=== PATIENT | male | born 1955 | race Caucasian/White ===

== ENCOUNTER 2017-09-15 12:26 | Emergency (ER) | payer OTHER ==
[~2017-09-15] VITALS: Ht 182.9 cm; Wt 92.3 kg
[~2017-09-15 12:26] MED LIST: ADULT LOW DOSE81 M1 PO; ADVAIR HFA120 INHALA IH; AUGMENTIN875 MG PO; Cozaar PO; DELTASONE20 M1 PO; GUAIFENESIN WI120 ML PO; LISINOPRIL10 MG PO; Lopressor PO; Norvasc PO; PREDNISONE10 MG PO; Plavix PO; Protonix PO; SPIRIVA RESPIMAT4 GM IH; TOPROL XL25 MG PO; TOPROL XL50 MG PO
[2017-09-15 13:08] LABS: BASOPHIL (%) 0.4 % (0-1); BASOPHIL COUNT 0.1 K/uL (0-0.1); EOSINOPHIL (%) 0 % (0-5); HEMATOCRIT 37.9 % (38.0-50.0); HEMOGLOBIN 13.4 G/DL (12.5-16.6); IMMATURE GRANULOCYTE (%) 3.7 % (0.0-0.7); LYMPHOCYTE (%) 5.7 % (15-42); LYMPHOCYTE COUNT 0.6 K/uL (1.0-2.8); MCH 32.7 PG (29.0-34.0); MCHC 35.4 G/DL (30.0-36.0); MCV 92.4 FL (86-99); MONOCYTE COUNT 0.5 K/uL (0-0.8); NEUTROPHIL (%) 86.2 % (45-76); NEUTROPHIL COUNT 9.7 K/uL (1.8-6.4); PLATELET COUNT 80 K/uL (156-360); RBC DIS.WIDTH-CV 14.7 % (11.8-14.6); WHITE BLOOD COUNT 11.2 K/uL (4.1-10.2)
[2017-09-15 13:16] LABS: ALBUMIN 3.9 g/dL (3.2-4.8); CHLORIDE 98 mEq/L (99-109); POTASSIUM 3.2 mEq/L (3.7-5.4); SODIUM 136 mEq/L (136-147)
[2017-09-15 13:19] LABS: GLUCOSE 209 mg/dL (70-99); TOTAL PROTEIN 7.4 g/dL (6.4-8.3)
[2017-09-15 13:22] LABS: ALKALINE PHOSPHATASE 130 IU/L (3-129); SERUM ETHYL ALCOHOL < 10 mg/dL
[2017-09-15 13:23] LABS: CREATININE 0.9 mg/dL (0.6-1.3); GFR ESTIMATE (CALCULATED) > 59 mL/min/ (58.99-99999)
[2017-09-15 13:24] LABS: AST (GOT) 96 IU/L (2-34); DIRECT BILIRUBIN 0.6 mg/dL (0.0-0.3); UREA NITROGEN (BUN) 4 mg/dL (9-23)
[2017-09-15 13:25] LABS: ALT (GPT) 75 IU/L (3-49)
[2017-09-15 14:47] VITALS: BP 147/93
== END 2017-09-15 14:49 | disposition left against medical advice (07) ==
LOC: EME 12:26
PROVIDERS: Emergency Medicine
DX: R55 Syncope and collapse (principal); V47.0XXA Car driver injured in collision with fixed or stationary object in nontraffic accident, initial encounter; Y92.410 Unspecified street and highway as the place of occurrence of the external cause; I10 Essential (primary) hypertension; F17.200 Nicotine dependence, unspecified, uncomplicated
CPT/HCPCS: 70450; 71045; 80048; 80076; 81003; 85025; 93005; 99281; 99284; G0480